=== PATIENT | female | born 2000 | race African-American/Black ===

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

== ENCOUNTER 2021-05-27 07:29 | Inpatient (IN) ==
[2021-05-27] MEDS ORDERED: AMPICILLIN INJ 2,000 MG in SODIUM CHLORIDE 0.9% 100 ML IV ONE (07:43)
[2021-05-27] MEDS ORDERED: CALCIUM GLUCONATE 1,000 MG in SODIUM CHLORIDE 0.9% 100 ML IV PRN (07:58)
[2021-05-27] MEDS: LACTATED RINGERS 1,000 ML IV PRN (08:10)
[2021-05-27] MEDS: BETAMETH SODIUM PHOS/ACETATE 30 MG/5 ML VIAL IM SCH ×2 (08:22→20:07)
[2021-05-27 08:28] LABS: Basophils % 0.5 % (0.0-0.8); Eosinophils # 0.2 10*3/uL (0.0-0.87); Eosinophils % 3.3 % (0.00-10.9); Hematocrit 28.8 VOL% (35.7-47.0); Hemoglobin 9.3 GM/DL (12.0-16.0); Immature Granulocytes % 2.6 %; Immature Granulocytes Absolute 0.19 #; Lymphocytes # 1.3 10*3/uL (1.4-4.0); Lymphocytes % 18.2 % (21.3-54.2); Mean Corpuscular HGB Conc 32.3 GM/DL (32-36); Mean Corpuscular Volume 88.1 FL (87-102); Mean Platelet Volume 11.4 FL (9.6-12.0); Monocytes % 9.9 % (1.7-12.7); Neutrophils % 65.5 % (38.7-73.9); Platelet Count 202 T/CUMM (130-400); Red Blood Count 3.27 MC/CUMM (3.8-5.5); Red Cell Distribution Width 14.1 % (9.3-17.3); White Blood Count 7.4 T/CUMM (4-12)
[2021-05-27 08:50] LABS: Eosinophils 5 % (0-10); Hypochromia 1+; Lymphocytes 16 % (20-55); Microcytosis 1+; Myelocytes 1 %; Platelet Estimate Normal; Segmented Neutrophils 73 % (50-85); Total Cells Counted 100
[2021-05-27] MEDS: AMPICILLIN INJ 1,000 MG in SODIUM CHLORIDE 0.9% 100 ML IV SCH ×3 (11:33→20:07)
[2021-05-27] MEDS: BUTORPHANOL 1 MG/ML VIAL IV PRN ×2 (11:34→17:04)
[2021-05-27] MEDS: LACTATED RINGERS 1,000 ML IV SCH ×2 (13:02→22:18)
[2021-05-27] MEDS ORDERED: MAGNESIUM HYDROXIDE SUSP 30 ML UDCUP PO ONE (16:58)
[2021-05-28] MEDS: AMPICILLIN INJ 1,000 MG in SODIUM CHLORIDE 0.9% 100 ML IV SCH ×5 (00:08→15:42)
[2021-05-28] MEDS: ONDANSETRON 4 MG/2 ML VIAL IV PRN ×2 (03:28→11:22)
[2021-05-28] MEDS: MEPERIDINE 50 MG/1 ML VIAL IV PRN ×2 (03:28→11:22)
[2021-05-28 05:01] LABS: Basophils % 0.2 % (0.0-0.8); Hematocrit 26.6 VOL% (35.7-47.0); Hemoglobin 8.5 GM/DL (12.0-16.0); Lymphocytes # 0.9 10*3/uL (1.4-4.0); Lymphocytes % 8.3 % (21.3-54.2); Mean Platelet Volume 11.7 FL (9.6-12.0); Monocytes % 3.4 % (1.7-12.7); Neutrophils % 85.5 % (38.7-73.9); Platelet Count 194 T/CUMM (130-400); Red Blood Count 2.99 MC/CUMM (3.8-5.5); Red Cell Distribution Width 14.2 % (9.3-17.3); White Blood Count 10.5 T/CUMM (4-12)
[2021-05-28] MEDS: LACTATED RINGERS 1,000 ML IV SCH ×3 (08:17→16:46)
[2021-05-28] MEDS: BETAMETH SODIUM PHOS/ACETATE 30 MG/5 ML VIAL IM SCH (08:18)
[2021-05-28] MEDS: ACETAMINOPHEN 500 MG TABLET PO PRN (21:58)
[2021-05-29] MEDS: oxyCODONE/ACETAMINOPHEN 5-325 MG TABLET PO PRN (00:12)
[2021-05-29] MEDS: ONDANSETRON 4 MG/2 ML VIAL IV PRN (03:11)
[2021-05-29] MEDS: MEPERIDINE 50 MG/1 ML VIAL IV PRN (03:11)
[2021-05-29] MEDS ORDERED: INFLUENZA VIRUS VACCINE 0.5 ML SYRINGE IM ONE (08:24)
[2021-05-30] MEDS: oxyCODONE/ACETAMINOPHEN 5-325 MG TABLET PO PRN
[2021-05-30 06:56] LABS: Basophils # 0.1 10*3/uL (0.0-0.2); Basophils % 0.7 % (0.0-0.8); Eosinophils # 0.1 10*3/uL (0.0-0.87); Eosinophils % 1.1 % (0.00-10.9); Hematocrit 31.5 VOL% (35.7-47.0); Hemoglobin 9.6 GM/DL (12.0-16.0); Immature Granulocytes Absolute 0.45 #; Lymphocytes # 1.5 10*3/uL (1.4-4.0); Lymphocytes % 17.2 % (21.3-54.2); Mean Corpuscular HGB Conc 30.5 GM/DL (32-36); Mean Corpuscular Volume 92.1 FL (87-102); Mean Platelet Volume 12.1 FL (9.6-12.0); Monocytes % 9.2 % (1.7-12.7); Neutrophils % 66.8 % (38.7-73.9); Platelet Count 246 T/CUMM (130-400); Red Blood Count 3.42 MC/CUMM (3.8-5.5); Red Cell Distribution Width 14.3 % (9.3-17.3); White Blood Count 8.9 T/CUMM (4-12)
[2021-05-30 07:19] LABS: Hypochromia 1+; Microcytosis Slight; Platelet Estimate Normal
[2021-05-30] MEDS ORDERED: OXYTOCIN/D5LR 20 UNIT/1,000 ML PREMIX IV SCH (08:00)
[2021-05-30] MEDS: AMPICILLIN INJ 2,000 MG in SODIUM CHLORIDE 0.9% 100 ML IV SCH ×2 (08:30→13:49)
[2021-05-30] MEDS ORDERED: OXYTOCIN/LR 20 UNIT/1,000 ML BAG IV SCH (08:30)
[2021-05-30] MEDS: LACTATED RINGERS 1,000 ML IV PRN (08:32)
[2021-05-30] MEDS: LACTATED RINGERS 1,000 ML IV SCH ×3 (08:37→11:17)
[2021-05-30] MEDS ORDERED: FAMOTIDINE 20 MG/2 ML VIAL IV ONE (08:57)
[2021-05-30] MEDS ORDERED: diphenhydrAMINE 50 MG/1 ML VIAL IV PRN ×2 (08:57)
[2021-05-30] MEDS ORDERED: NALOXONE 0.4 MG/ML VIAL IV PRN (08:57)
[2021-05-30] MEDS ORDERED: CITRIC ACID/SODIUM CITRATE 30 ML UDCUP PO ONE (08:57)
[2021-05-30] MEDS ORDERED: ePHEDrine 50 MG/ML VIAL IV PRN (08:57)
[2021-05-30] MEDS ORDERED: fentaNYL 2 MCG/ROPIV 0.2% EPID 100 ML EPIDURAL SCH (09:00)
[2021-05-30] MEDS ORDERED: miSOPROStoL 200 MCG TABLET ONE (13:44)
[2021-05-30] MEDS ORDERED: METHYLERGONOVINE 0.2 MG/1 ML AMP ONE (13:44)
[2021-05-30 14:27] LABS: Cord Venous Blood HCO3 23.8 MMOL/L; Cord Venous Blood PO2 39.7 MMHG
[2021-05-30] MEDS: ACETAMINOPHEN 500 MG TABLET PO PRN (16:02)
[2021-05-30] MEDS ORDERED: WITCH HAZEL PADS 100/JAR TOP PRN (16:54)
[2021-05-30] MEDS ORDERED: HYDROCORTISONE 2.5% RECTAL CREAM 30 GM TUBE TOP PRN (16:54)
[2021-05-30] MEDS ORDERED: oxyCODONE/ACETAMINOPHEN 5-325 MG TABLET PO PRN ×2 (16:54)
[2021-05-30] MEDS ORDERED: DIPH/TET/ACEL PERT BOOSTER VACCINE 0.5 ML VIAL IM ONE (16:54)
[2021-05-30] MEDS ORDERED: MEASLES/MUMPS/RUBELLA VACCINE 0.5 ML VIAL SUBCUT ONE (16:54)
[2021-05-30] MEDS ORDERED: BISACODYL 10 MG SUPP RECTAL PRN (16:54)
[2021-05-30] MEDS ORDERED: BENZOCAINE 20%/MENTHOL 0.5% SPRAY 56 GM CAN TOP PRN (16:54)
[2021-05-30] MEDS ORDERED: OXYTOCIN/LR 20 UNIT/1,000 ML BAG IV ONE (16:54)
[2021-05-30] MEDS ORDERED: ONDANSETRON 4 MG/2 ML VIAL IV PRN (16:54)
[2021-05-30] MEDS ORDERED: ACETAMINOPHEN 325 MG TABLET PO PRN (16:54)
[2021-05-30] MEDS ORDERED: RHO(D) IMMUNE GLOBULIN 300 MCG SYRINGE IM ONE (16:54)
[2021-05-30] MEDS ORDERED: LANOLIN 50% CREAM 0.3 OZ TUBE TOP PRN (16:54)
[2021-05-30] MEDS: IBUPROFEN 800 MG TABLET PO PRN (17:30)
[2021-05-30] MEDS: DOCUSATE SODIUM 100 MG CAPSULE PO SCH (21:17)
[2021-05-31] MEDS: IBUPROFEN 800 MG TABLET PO PRN ×3 (00:56→19:02)
[2021-05-31 05:26] LABS: Basophils # 0.1 10*3/uL (0.0-0.2); Basophils % 0.6 % (0.0-0.8); Eosinophils # 0.3 10*3/uL (0.0-0.87); Eosinophils % 2.1 % (0.00-10.9); Hematocrit 26.1 VOL% (35.7-47.0); Hemoglobin 8.4 GM/DL (12.0-16.0); Immature Granulocytes % 1.9 %; Immature Granulocytes Absolute 0.24 #; Lymphocytes # 2.3 10*3/uL (1.4-4.0); Lymphocytes % 18.1 % (21.3-54.2); Mean Corpuscular HGB Conc 32.2 GM/DL (32-36); Mean Corpuscular Volume 88.5 FL (87-102); Monocytes % 8.5 % (1.7-12.7); Neutrophils % 68.8 % (38.7-73.9); Platelet Count 184 T/CUMM (130-400); Red Blood Count 2.95 MC/CUMM (3.8-5.5); Red Cell Distribution Width 14.1 % (9.3-17.3); White Blood Count 12.5 T/CUMM (4-12)
[2021-05-31 05:48] LABS: Eosinophils 3 % (0-10); Hypochromia 1+; Lymphocytes 22 % (20-55); Microcytosis 1+; Platelet Estimate Adequate; Segmented Neutrophils 66 % (50-85); Total Cells Counted 100
[2021-05-31] MEDS: DOCUSATE SODIUM 100 MG CAPSULE PO SCH ×2 (08:09→21:22)
[2021-05-31] MEDS: FERROUS SULFATE 325 MG TABLET PO SCH ×2 (08:09→21:22)
[2021-05-31] MEDS ORDERED: ACETAMINOPHEN/CODEINE 300-30 MG TABLET ONE (12:30)
[2021-05-31] MEDS ORDERED: ACETAMINOPHEN/CODEINE 300-30 MG TABLET PO PRN ×2 (12:34)
[2021-06-01] MEDS: FERROUS SULFATE 325 MG TABLET PO SCH (08:09)
[2021-06-01] MEDS: DOCUSATE SODIUM 100 MG CAPSULE PO SCH (08:09)
[2021-06-01] MEDS: IBUPROFEN 800 MG TABLET PO PRN (08:10)
[2021-06-01 13:19] VITALS: BP 109/67
== END 2021-06-01 16:15 | disposition home or self-care (01) | DRG 807 ==
LOC: N.LDOUT 07:29 → N.LD 07:32 → N.OB 05-29 15:28 → N.LD 05-30 07:57 → N.OB 05-30 16:53
PROVIDERS: ADMIT Obstetrics & Gynecology; ATTEND Obstetrics & Gynecology